=== PATIENT | female | born 1985 | race Caucasian/White ===

== ENCOUNTER → 2016-05-29 | Outpatient (REF) | payer OTHER ==
[2016-05-29 13:44] LABS: MEAN CORPUSCULAR HEMOGLOBIN 31.9 pg (27.0-33.0); MEAN CORPUSCULAR HGB CONC 33.6 g/dl (32.0-36.5); RED CELL DISTRIBUTION WIDTH 11.6 % (11.5-14.5); WHITE BLOOD COUNT 7.4 K/mm3 (4.0-10.0)
[2016-05-29 14:32] LABS: HCG, SERUM QUANTITATIVE 52677 MIU/ML
== END ==
LOC: M LAB REF 13:12
PROVIDERS: ATTEND Advanced Practice Midwife
DX: O36.80X0 Pregnancy with inconclusive fetal viability, not applicable or unspecified (principal); Z3A.00 Weeks of gestation of pregnancy not specified

== ENCOUNTER → 2016-07-26 | Outpatient (CLI) | payer OTHER ==
--- NOTE | 2016-07-27 04:52 | REP ---
Clinical: Dating and viability Comparison: None . Findings: Examination demonstrates a single live intrauterine in variable presentation. motion is identified by technologist. Placenta is noted fundally and grade zero without evidence for placenta previa or abruption. Amniotic fluid volume is normal. Cervix measures 4.1 cm in length and appears closed. No evidence for nuchal cord. Gestational age by current biometrical measurements at 17 weeks 0 days with estimated date of delivery at 01/03/2017. FHR equals 144 beats per minute. Impression: Single live intrauterine measuring at 17 weeks 0 days gestational age. Complete anatomical assessment should be performed at 19-21 weeks. Signed by Niels Rosales MD 07/27/2016 04:43 A
== END ==
LOC: M RAD 12:59
PROVIDERS: ATTEND Obstetrics & Gynecology
DX: O36.80X0 Pregnancy with inconclusive fetal viability, not applicable or unspecified (principal); Z36 Encounter for antenatal screening of mother; Z3A.17 17 weeks gestation of pregnancy

== ENCOUNTER → 2016-09-17 | Outpatient (CLI) | payer OTHER ==
--- NOTE | 2016-09-17 15:41 | REP ---
Obstetric ultrasound for anatomy: There is a single intrauterine gestation in a vertex presentation. There is motion and cardiac activity, the heart rate is 147 beats per minute. There is anterior without previa or abruptio with grade 1 maturity. The amniotic fluid volume subjectively is normal. The cervix is 4.9 cm in length. By today's ultrasound the gestational age is 24 weeks 1 day with an TWIN of 01/06/2017. By the first ultrasound the gestational age is 24 weeks 4 days with an TWIN of 01/03/2017. weight 695 grams (1 pound, 8 ounces). This is the 41st percentile for 24 weeks 4 days. The following structures are identified and are unremarkable: Cranium, choroid plexus, cavum septum pellucidum, cerebellum, posterior fossa, facial profile, lungs, four-chamber heart, cardiac left ventricular outflow tract, diaphragm, as stomach, cord insertion, three-vessel cord, kidneys, bladder, spine and upper lower extremities. We are unable to identify the right ventricular outflow tracts because of lie. On the prior study there was a right choroid plexus cyst. This choroid plexus cyst has resolved. Impression: There are no anomalies, however, the right ventricular outflow tract could not be adequately demonstrated because of position. A followup study dedicated to this structure might be considered. Otherwise, no anomalies are identified. Signed by Wenceslao Short MD 09/17/2016 03:32 P
== END ==
LOC: M SMT 13:23
PROVIDERS: ATTEND Advanced Practice Midwife
DX: Z36 Encounter for antenatal screening of mother (principal); Z3A.24 24 weeks gestation of pregnancy

== ENCOUNTER → 2016-10-03 | Outpatient (REF) | payer OTHER | LOC: M LAB REF 13:01 | PROVIDERS: ATTEND Advanced Practice Midwife | DX: Z34.82 Encounter for supervision of other normal pregnancy, second trimester (principal) ==

== ENCOUNTER → 2016-10-16 | Outpatient (CLI) | payer OTHER | LOC: M SMT 09:39 | PROVIDERS: ATTEND Advanced Practice Midwife | DX: Z34.82 Encounter for supervision of other normal pregnancy, second trimester (principal); Z86.32 Personal history of gestational diabetes ==

== ENCOUNTER → 2016-11-07 | Outpatient (CLI) | payer OTHER ==
[2016-11-07 10:40] LABS: LYMPH % 14.2 % (24.0-44.0); MEAN CORPUSCULAR HEMOGLOBIN 31.3 pg (27.0-33.0); MEAN CORPUSCULAR HGB CONC 33.9 g/dl (32.0-36.5); MEAN CORPUSCULAR VOLUME 92.4 fl (80.0-96.0); NEUTROPHILS % 76.7 % (36.0-66.0); PLATELET COUNT, AUTOMATED 195 10^3/uL (150-450); RED CELL DISTRIBUTION WIDTH 12.5 % (11.5-14.5); WHITE BLOOD COUNT 10.9 10^3/uL (4.0-10.0)
[2016-11-07 10:41] LABS: BASO # 0.1 10^3/uL (0.0-0.2); BASO % 0.5 % (0.0-1.0); EOS # 0.1 10^3/uL (0.0-0.50); EOS % 0.7 % (0.0-3.0); IMMATURE GRANULOCYTE % 0.9 % (0-0); LYMPH # 1.6 10^3/uL (1.5-4.5); MONO # 0.8 10^3/uL (0.0-0.8); NEUTROPHILS # 8.4 10^3/uL (1.8-7.7)
== END ==
LOC: M LAB 09:35
PROVIDERS: ATTEND Advanced Practice Midwife
DX: Z34.83 Encounter for supervision of other normal pregnancy, third trimester (principal)

== ENCOUNTER → 2016-11-16 | Outpatient (CLI) | payer OTHER ==
--- NOTE | 2016-11-16 13:23 | REP ---
OB ULTRASOUND: Real-time sonographic evaluation of gravid uterus performed. There is a single living intrauterine gestation. The estimated gestational age is 33 weeks 1 day, EDC 01/03/2017. Today's measurements indicate appropriate growth. BPD 80 mm = 32 weeks 2 days, 38th percentile HC 286 mm = 31 weeks 3 days, 26th percentile AC 282 mm = 32 weeks 1 day, 36th percentile Femur length 62 mm = 32 weeks 2 days, 37th percentile HC/AC ratio 1.02, within normal range. Estimated weight 1910 grams, 26th percentile. Cervix is closed and measures 3.7 cm in length. heart rate 133 beats per minute. Amniotic fluid within normal limits, HUE 10.8 within normal range of 8.3 to 24.5. Visualized anatomy today includes the posterior fossa, stomach, three-vessel cord, bladder, and spine, which are grossly unremarkable. Kidneys are grossly unremarkable. position vertex. Placenta is anterior and grade 1 with no previa or abruption. Signed by Wenceslao Horan MD 11/16/2016 02:46 P
== END ==
LOC: M SMT 11:20
PROVIDERS: ATTEND Advanced Practice Midwife
DX: O09.299 Supervision of pregnancy with other poor reproductive or obstetric history, unspecified trimester (principal); Z3A.33 33 weeks gestation of pregnancy

== ENCOUNTER 2016-12-29 22:42 | Inpatient (IN) | payer OTHER ==
[~2016-12-29] VITALS: Ht 157.5 cm; Wt 64.8 kg
[~2016-12-29 22:42] MED LIST: PRENCAP6 PO
[2016-12-29 22:58] VITALS: BP 129/74
[2016-12-29] MEDS ORDERED: LR 1,000 ML IV SCH (23:42)
[2016-12-29] MEDS ORDERED: BICITRA 30ML SOLN UDC PO ONE (23:45)
[2016-12-29 23:47] VITALS: BP 129/66
[2016-12-29 23:52] LABS: MEAN CORPUSCULAR HEMOGLOBIN 31.4 pg (27.0-33.0); MEAN CORPUSCULAR HGB CONC 34.5 g/dl (32.0-36.5); PLATELET COUNT, AUTOMATED 214 10^3/uL (150-450); RED CELL DISTRIBUTION WIDTH 12.7 % (11.5-14.5); WHITE BLOOD COUNT 12.6 10^3/uL (4.0-10.0)
[2016-12-30] VITALS (18 sets, daily range): BP systolic 107–137; BP diastolic 56–102
[2016-12-30] MEDS ORDERED: MORPHINE PRES-FREE INJ 10 MG/10 ML VIAL (J2274) As Ordered ONE (00:09)
[2016-12-30] MEDS ORDERED: OXYTOCIN INJ 10 UNITS/ML VIAL (J2590) As Ordered ONE (00:10)
[2016-12-30] MEDS ORDERED: fentaNYL 100 MCG/2 ML INJECTION (J3010) As Ordered ONE ×2 (00:43→01:26)
[2016-12-30] MEDS ORDERED: MIDAZOLAM INJ 2 MG/2 ML VIAL (J2250) As Ordered ONE (01:00)
[2016-12-30 01:12] LABS: CORD GAS HCO3 V 25.8 MEQ/L; CORD GAS O2 SAT V 42.1 %; CORD GAS PH V 7.237 UNITS; CORD GAS PO2 V 19.7 mmHg; CORD GAS SBC V 20.6 MEQ/L; CORD GAS TCO2 V 27.7 MEQ/L
[2016-12-30 01:16] LABS: CORD GAS ABE A -5.1; CORD GAS HCO3 A 23.4 MEQ/L; CORD GAS O2 SAT A 15.6 %; CORD GAS PCO2 A 57.9 mmHg; CORD GAS PH A 7.224 UNITS; CORD GAS PO2 A < 10.0 mmHg; CORD GAS SBC A 18.5 MEQ/L; CORD GAS TCO2 A 25.2 MEQ/L
[2016-12-30] MEDS ORDERED: PERCOCET 5MG/325MG TAB As Ordered ONE (02:06)
[2016-12-30] MEDS: LR 1,000 ML IV SCH ×3 (02:10→18:10)
[2016-12-30] MEDS: PERCOCET 5MG/325MG TAB PO PRN ×3 (02:10→17:38)
[2016-12-30] MEDS ORDERED: OXYTOCIN DRIP 30 UNITS in APPROPRIATE DILUENT 1 EA IV ONE (02:15)
[2016-12-30] MEDS ORDERED: KETOROLAC 30 MG/ML VIAL (J1885) IV SCH (02:15)
[2016-12-30] MEDS ORDERED: ONDANSETRON 4MG/2ML VIAL (J2405) IV PRN ×2 (02:15→03:15)
[2016-12-30] MEDS ORDERED: DOCUSATE SODIUM 100 MG CAP PO PRN (02:15)
[2016-12-30] MEDS ORDERED: MEASLES,MUMPS,RUBELLA VACCINE INJ (MMR-II) (90707) SC SCH (02:15)
[2016-12-30] MEDS ORDERED: MOM 30ML SUSPENSION UDC PO PRN (02:15)
[2016-12-30] MEDS ORDERED: RHOGAM 300 MCG (1500 IU) INJ (J2790) IM SCH (02:15)
[2016-12-30] MEDS ORDERED: AMPICILLIN SOD/SULBACTAM SOD 3 GM in D5W MINI-BAG PLUS 100 ML IV SCH (03:00)
[2016-12-30] MEDS ORDERED: METOCLOPRAMIDE INJ 10MG/2ML VIAL (J2765) IV PRN (03:15)
[2016-12-30] MEDS ORDERED: fentaNYL 100 MCG/2 ML INJECTION (J3010) IV PRN (03:15)
[2016-12-30] MEDS ORDERED: LR 1,000 ML IV SCH (03:15)
[2016-12-30] MEDS ORDERED: PERCOCET 5MG/325MG TAB PO PRN (03:15)
[2016-12-30] MEDS: KETOROLAC 30 MG/ML VIAL (J1885) IV SCH ×3 (07:43→19:32)
--- NOTE | 2016-12-30 08:12 | HPE ---
DATE OF ADMISSION: 12/29/2016 REASON FOR ADMISSION: Active labor. HISTORY OF PRESENT ILLNESS: This patient is a 31-year-old 7, para 2, who presents at 38 weeks 5 days estimated gestational age by a first trimester ultrasound with complaints of contractions. She reports contractions have increased in frequency and intensity throughout the day, and upon arrival, she had a spontaneous rupture of membranes. She reports active movement. Denies any vaginal bleeding. Her course is remarkable for a transfer of care at 22 weeks and also, unremarkable for smoking during her . PAST MEDICAL HISTORY: History of depression and anxiety. PAST SURGICAL HISTORY: 1. She has had a section. 2. Dilation and curettage. PAST OBSTETRICAL HISTORY: She is a 7. She is para 2. She has had a 36 week vaginal delivery, which was complicated by intrauterine growth restriction and diabetes. She was proven to 4 pounds 6 ounces. She had a stillbirth at approximately 7 months, followed by three miscarriages. She has had a section for breech presentation. No current medications. SOCIAL HISTORY: She reports tobacco use during her . On physical exam, her vital signs are stable. She has category 2 rate tracing with regular pattern of contractions. General appearance: No acute distress. Her lungs are clear to auscultation bilaterally. Cardiovascular: Heart regular rate and rhythm. Her abdomen is gravid and nontender. Cervical exam: She is 4 cm dilated, 90% effaced, zero station, grossly ruptured. LABS: Her blood type is A positive. Antibody screen is negative. Rubella is immune. RPR is nonreactive. Hepatitis surface antigen is negative. HIV is negative. Hepatitis C is nonreactive. Chlamydia and gonorrhea screens are negative. She had elevated 1-hour Glucola with a normal 3-hour glucose tolerance test and she is GBS negative. ASSESSMENT: 1. This patient is a 31-year-old, 7, para 2, who presents at 38 weeks 5 days estimated gestational age in active labor. 2. History of prior section. Plan is to: 1. Admit to labor and delivery, complete blood count (CBC), rapid plasma reagin (RPR), type and screen, urine toxicology screen. 2. Patient has been thoroughly counseled in regards to mode of delivery. She has been counseled for vaginal delivery versus a trial of labor after . She has expressed her desire for elective repeat lower transverse section with bilateral tubal ligation throughout this . She has confirmed today upon presentation. Plan is to proceed at her request for elective lower transverse section with bilateral tubal ligation. VIVIAN
[2016-12-30] MEDS ORDERED: IBUP1TAB7 PO (08:54)
[2016-12-30] MEDS ORDERED: PERCOCET PO (08:55)
[2016-12-30] MEDS: PRENATAL VITAMINS CHEWABLE TABLET PO SCH (09:00)
[2016-12-30] MEDS: AMPICILLIN SOD/SULBACTAM SOD 3 GM in D5W MINI-BAG PLUS 100 ML IV SCH ×2 (10:54→17:32)
--- NOTE | 2016-12-30 10:58 | RO ---
DATE OF PROCEDURE: 12/30/2016 PREOPERATIVE DIAGNOSES: 1. Active labor with history of prior section desiring elective repeat lower transverse section. 2. Satisfied parity with undesired fertility. POSTOPERATIVE DIAGNOSES: 1. Active labor with history of prior section desiring elective repeat lower transverse section. 2. Satisfied parity with undesired fertility. PROCEDURE PERFORMED: Repeat lower transverse section with bilateral tubal ligation using Marshall's method. SURGEON: Mendy Donahue MD TELECOMMUNICATIONS ADMINISTRATOR: Jigar Thomas MD ANESTHESIA: Spinal anesthesia, which was converted to general endotracheal anesthesia. ESTIMATED BLOOD LOSS: Was 500 mL. INTRAVENOUS FLUIDS: 1300 mL. URINE OUTPUT: Was 100 mL. SPECIMENS: Cord blood, cord gases and bilateral segments of fallopian tube. Cord gases 7.22, 7.23 with base excess of -5.1 and -3.0. PREOPERATIVE ANTIBIOTICS: 2 grams of Ancef. OPERATIVE FINDINGS: Liveborn male , score 8 and 9. Weight was 2650 grams or 5 pounds 13 ounces. DESCRIPTION OF OPERATION: After informed consent was obtained and written consent was reviewed, the patient was brought to the operating room where spinal anesthesia was placed. She was placed in lithotomy position, was prepped and draped in normal sterile fashion. Pappas catheter had been placed, set to gravity. A time-out in the operating room was then performed, identifying the patient, procedure to be performed, as well as drug allergies. Patient had remained uncomfortable after spinal anesthesia. A decision was made to proceed under general anesthesia. General anesthesia was obtained. Next, a Pfannenstiel skin incision was then made and carried down to the underlying rectus fascia. The fascia was scored and this incision was extended bilaterally. The fascia was then dissected off the underlying rectus muscles both superiorly and inferiorly. The rectus muscles were then in midline. The peritoneum was then entered sharply. The vesicouterine peritoneum was identified. It was tented and excised to create a bladder flap. A bladder blade was then placed to retract back the bladder. A curvilinear incision was then made in the lower uterine segment. The head was then delivered to the level of the incision. There was use of a vaginal field technical assistant to help deliver head through the uterine incision. This was followed by delivery of corpus and body. The cord was clamped times two and infant was taken over to the warmer with a good cry. Cord blood and gases were obtained. Placenta was then drained and delivered grossly intact. The uterus was then exteriorized and cleared of all clots and debris. The uterine incision was then closed in two layers using #0 Vicryl, first in a running locking fashion, followed by a second layer in a running nonlocking fashion for imbrication. Attention was then turned to the patient's fallopian tube for bilateral Marshall's ligation was then performed. The right fallopian tube was placed on traction. A window was created in the mesosalpinx. This area was doubly ligated using #3-0 chromic. A segment of fallopian tube was then excised and collected for pathology. In a similar fashion, the left fallopian tube was placed on traction, a window was created in the mesosalpinx. This area was doubly ligated with #3-0 chromic and this area was excised and collected and sent to pathology. The uterus was then returned to the patient's abdomen. Surgical sites were then inspected and noted to be hemostatic. Next, the anterior peritoneum was then reapproximated using #3-0 Vicryl. The rectus muscles were reapproximated using #3-0 Vicryl. The fascia was then closed using #0 Vicryl in a running nonlocking fashion. The subcutaneous tissue was then irrigated and suctioned. Subcutaneous tissue was reapproximated using #3-0 Vicryl. Several subdermal stitches were placed with #3-0 Vicryl and the skin was closed with #4-0 Monocryl in subcuticular fashion. The incision was then cleaned and dried. Mastisol was applied above, below the incision. Steri-Strips were applied over the incision. The incision was then dressed. The patient was then awakened from general anesthesia, taken to recovery in stable condition. Counts were correct.
[2016-12-31] MEDS: PERCOCET 5MG/325MG TAB PO PRN ×4 (00:17→20:25)
[2016-12-31] MEDS: KETOROLAC 30 MG/ML VIAL (J1885) IV SCH (01:21)
[2016-12-31 02:02] VITALS: BP 114/63
[2016-12-31 06:42] VITALS: BP 105/57
[2016-12-31 07:05] LABS: MEAN CORPUSCULAR HEMOGLOBIN 31.5 pg (27.0-33.0); MEAN CORPUSCULAR HGB CONC 34.1 g/dl (32.0-36.5); MEAN CORPUSCULAR VOLUME 92.4 fl (80.0-96.0); PLATELET COUNT, AUTOMATED 150 10^3/uL (150-450); RED CELL DISTRIBUTION WIDTH 12.8 % (11.5-14.5); WHITE BLOOD COUNT 13.6 10^3/uL (4.0-10.0)
[2016-12-31] MEDS ORDERED: SIMETHICONE 80 MG CHEW TAB PO PRN (08:00)
[2016-12-31] MEDS: PRENATAL VITAMINS CHEWABLE TABLET PO SCH (08:01)
[2016-12-31] MEDS: IBUPROFEN 800 MG TAB PO SCH ×2 (08:02→17:30)
[2016-12-31 18:04] VITALS: BP 127/66
[2017-01-01] MEDS: PERCOCET 5MG/325MG TAB PO PRN ×3 (01:11→15:31)
[2017-01-01] MEDS: IBUPROFEN 800 MG TAB PO SCH ×2 (01:30→08:51)
[2017-01-01 06:00] VITALS: BP 130/59
[2017-01-01] MEDS ORDERED: SIME180C PO (07:40)
[2017-01-01] MEDS ORDERED: ADVI200C5 PO (07:40)
[2017-01-01] MEDS ORDERED: COLA100C5 PO (07:40)
[2017-01-01] MEDS: PRENATAL VITAMINS CHEWABLE TABLET PO SCH (08:51)
[2017-01-04 14:10] LABS: GC Carboxy THC 546 ng/mL (Cutoff=10)
== END 2017-01-01 15:30 | disposition home or self-care (01) | DRG 540 ==
LOC: M LDO 22:42 → M LDI 23:27 → M OBS 12-30 03:00
PROVIDERS: ADMIT Obstetrics & Gynecology; ATTEND Obstetrics & Gynecology
PROC: 0UB70ZZ Excision of Bilateral Fallopian Tubes, Open Approach (ICD-10-PCS; 2016-12-30)
PROC: 10D00Z1 Extraction of Products of Conception, Low, Open Approach (ICD-10-PCS; principal; 2016-12-30 01:43)
DX: O34.211 Maternal care for low transverse scar from previous cesarean delivery (principal); O75.82 Onset (spontaneous) of labor after 37 completed weeks of gestation but before 39 completed weeks gestation, with delivery by (planned) cesarean section; Z37.0 Single live birth; Z3A.38 38 weeks gestation of pregnancy; Z30.2 Encounter for sterilization

== ENCOUNTER 2019-08-29 11:03 | Inpatient (IN) | payer MEDICAID, OTHER, SELFPAY ==
[~2019-08-29] VITALS: Ht 160 cm; Wt 56.4 kg
[~2019-08-29 11:03] MED LIST changes: +ADVI200C5 PO; +COLA100C5 PO; +IBUP1TAB7 PO; +PERCOCET PO; +SIME180C PO
[2019-08-29] MEDS ORDERED: MIDOTAB PO (11:13)
[2019-08-29 11:37] LABS: BASO # 0.1 10^3/uL (0.0-0.2); BASO % 0.3 % (0.0-1.0); EOS % 0.2 % (0.0-3.0); HEMOGLOBIN 15.3 g/dl (12.0-15.5); LYMPH # 1.3 10^3/uL (1.5-5.0); LYMPH % 6.9 % (24.0-44.0); MEAN CORPUSCULAR HEMOGLOBIN 32.2 pg (27.0-33.0); MEAN CORPUSCULAR VOLUME 94.7 fl (80.0-96.0); MONO # 1.4 10^3/uL (0.0-0.8); MONO % 7.6 % (0.0-5.0); NEUTROPHILS # 15.5 10^3/uL (1.5-8.5); NEUTROPHILS % 84.4 % (36.0-66.0); PLATELET COUNT, AUTOMATED 236 10^3/uL (150-450); RED BLOOD COUNT 4.75 10^6/uL (4.00-5.40); WHITE BLOOD COUNT 18.3 10^3/uL (4.0-10.0)
[2019-08-29] MEDS ORDERED: NS 1,000 ML IV ONE (11:45)
[2019-08-29] MEDS ORDERED: ONDANSETRON 4MG/2ML VIAL IV ONE (11:45)
[2019-08-29] MEDS ORDERED: KETOROLAC 30 MG/ML 1ML VIAL IV ONE (11:45)
[2019-08-29 12:02] LABS: ALBUMIN 3.9 GM/DL (3.2-5.2); BILIRUBIN,DIRECT 0.4 MG/DL (0.0-0.2); BILIRUBIN,TOTAL 1.2 MG/DL (0.2-1.0); TOTAL PROTEIN 7.7 GM/DL (6.4-8.2)
[2019-08-29] MEDS: GASTROGRAFIN SOLUTION 30ML PO SCH ×2 (12:07→12:50)
[2019-08-29] MEDS ORDERED: ISOVUE-370 76% 100ML VIAL As Ordered ONE (13:21)
[2019-08-29] MEDS ORDERED: CIPROFLOXACIN 400 MG in IV 1 EA IV ONE (14:15)
[2019-08-29] MEDS ORDERED: metroNIDAZOLE 500 MG in IV 1 EA IV ONE (14:15)
[2019-08-29] MEDS ORDERED: PERCOCET 5MG/325MG TAB PO PRN (17:00)
[2019-08-29] MEDS ORDERED: ACETAMINOPHEN TAB 650MG DOSE (2X325MG) PO PRN (17:00)
[2019-08-29] MEDS ORDERED: KETOROLAC 30 MG/ML 1ML VIAL IV PRN (17:00)
--- NOTE | 2019-08-29 17:40 | HPEPDOC ---
General Surgery H&P Date of Admission Aug 29, 2019 Attending Physician: NELL JARA MD History and Physical CHIEF COMPLAINT: abdominal pain HISTORY OF PRESENT ILLNESS: Patient is an overall healthy 34-year-old female who presented herself to the emergency department today with a two-day history of abdominal pain. Patient reports sudden onset of crampy lower quadrant bilateral abdominal pain that started yesterday morning associated with nausea and multiple episodes of vomiting overnight and 1-2 loose nonbloody stools. She denies associated fevers or chills. She reports prior symptoms that are much less in severity than what she was experiencing today which would go away on its own. She denies any prior episodes of previously recognized diverticulitis. She reports weight gain and no weight loss. She has not had any prior colonoscopies for any reason. She denies any family history for Crohn's disease, inflammatory bowel disease or colorectal malignancy. She denies any recent travel or sick contacts. In the ER she was evaluated and was found to have inflammation around the sigmoid colon with a pericolic free air consistent with probably colitis/diverticulitis. ALLERGIES: Please see below. HOME MEDICATIONS: Please see below. PAST MEDICAL HISTORY: 1. Patient denies any chronic medical problems PAST SURGICAL HISTORY: 1. section. 2. D&C PERSONAL/SOCIAL HISTORY: Patient reports smoking half pack a day, alcohol intake usually 1 time a week, denies recreational drug use. REVIEW OF SYSTEMS: GENERAL: Symptoms are due to the duration. Patient reports mild weight gain. HEENT: Denies problems with vision or hearing or hoarseness of her voice. NECK: Denies any neck pain. CARDIOVASCULAR: Denies chest pain and palpitations. MUSCULOSKELETAL: Denies arthralgias, back pain and thrombophlebitis. SKIN: Denies rash. NEUROLOGIC: Denies headache, stroke and transient ischemic attack. PSYCHIATRIC: Denies anxiety and depression. ENDOCRINE: Denies thyroid disease. HEMATOLOGY/ONCOLOGY: Denies any bleeding or clotting disorder. HEART: Denies any chest pains, palpitations, paroxysmal dyspnea, orthopnea. PULMONARY: Denies chronic cough, dyspnea and wheezing. GASTROINTESTINAL: See HPI. GENITOURINARY: Reports mild dysuria. ENDOCRINE: Denies polydipsia, polyphagia, polyuria, heat or cold intolerance. INFECTIOUS: Denies any recent upper respiratory tract infection, UTI, need for use of antibiotics. NUTRITION: Reports anorexia. PHYSICAL EXAMINATION: VITAL SIGNS: Please see below. GENERAL APPEARANCE: Patient seen at the bedside, mildly uncomfortable with movement. Awake, alert, oriented. HEENT: Normocephalic, atraumatic. [place] palpebral conjunctivae. Anicteric sclerae. Lips moist. CHEST: No chest wall abnormalities. Normal respiratory motion/effort. NECK: Supple. No thyromegaly. No lymphadenopathies. LUNGS: Lung sounds are clear to auscultation bilaterally. No wheezing appr eciated. HEART: No chest wall abnormalities. Heart rate and rhythm are regular with no murmurs. ABDOMEN: Abdomen is mildly obese, nondistended. She has tenderness centered at the suprapubic area with slight radiation over the left lower quadrant area nontender in the right lower quadrant and upper abdomen. Mild guarding over the suprapubic area.. SKIN: Warm and dry. EXTREMITIES: No significant extremity edema. NEUROLOGICAL: Awake, alert and oriented. ANCILLARIES: . LABORATORY DATA: Please see below. MICROBIOLOGY: Please see below. IMAGING: CT abdomen and pelvis Colitis/diverticulitis, couple of bubbles of air decide the sigmoid colon, no free air, no abscess IMPRESSION AND PLAN: Acute diverticulitis (2 type II) some bubbles of air in the mesentery decide the sigmoid colon with marked thickening of the mucosa on the sigmoid colon no free air, no abscesses Patient has symptoms consistent with most likely acute diverticulitis which is her first documented attack though she reports prior episodes of mild symptoms. She'll be admitted in the hospital for IV antibiotics and hopefully just a short period of bowel rest to control the pain as well as the leukocytosis. I told her that there is a small possibility that this will develop an abscess which may require subsequent drainage. One she clinically improves he can gradually introduced diet once more. Would recommend for her to get into a high-fiber diet. She will also require interval colonoscopy Vital Signs Vital Signs Date Time Temp Pulse Resp B/P (MAP) Pulse Ox O2 Delivery O2 Flow Rate FiO2 08/29/19 16:23 98.1 80 22 98/55 (69) 98 Room Air Laboratory Data Labs 24H Laboratory Tests 2 08/29/19 11:26: Urine Color ASAF, Urine Appearance CLOUDYH, Urine pH 5.0, Urine Specific [place] 1.027, Urine Protein 1+H, Urine Glucose (UA) NEGATIVE, Urine Ketones 2+H, Urine Blood NEGATIVE, Urine Nitrite NEGATIVE, Urine Bilirubin NEGATIVE, Urine Urobilinogen 2.0H, Urine Leukocyte Esterase 1+H, Urine WBC (Auto) 33H, [place] RBC (Auto) 2, Urine Hyaline Casts (Auto) 0, Urine Bacteria (Auto) 1+H, Urine Squamous Epithelial Cells 44, Urine Mucus (Auto) LARGE, Urine Sperm (Auto) 08/29/19 11:27: Immature Granulocyte % (Auto) 0.6, Neutrophils (%) (Auto) 84.4H, Lymphocytes (%) (Auto) 6.9L, Monocytes (%) (Auto) 7.6H, Eosinophils (%) (Auto) 0.2, Basophils (%) (Auto) 0.3, Neutrophils # (Auto) 15.5H, Lymphocytes # (Auto) 1.3L, Monocytes # (Auto) 1.4H, Eosinophils # (Auto) 0.0, Basophils # (Auto) 0.1, Nucleated Red Blood Cells % (auto) 0.0, Total Bilirubin 1.2H, Direct Bilirubin 0.4H, Aspartate Amino Transf (AST/SGOT) 40H, Alanine Aminotransferase (ALT/SGPT) 27, Alkaline Phosphatase 79, Total Protein 7.7, Albumin 3.9, Albumin/Globulin Ratio 1.0L, Lipase 52L 08/29/19 11:28: POC Beta HCG, Quantitative < 5.0 08/29/19 11:41: POC Glucose (Misc Panel) 116H, POC Sodium (Misc Panel) 135L, POC Potassium (Misc Panel) 3.5, POC Chloride (Misc Panel) 101, POC Total CO2 (Misc Panel) 22.0L, POC Blood Urea Nitrogen (Misc Panel 10, POC Ionized Calcium (Misc Panel) 4.5, POC Creatinine (Misc Panel) 0.6, POC Hematocrit (Misc Panel) 48.0 CBC/BMP Laboratory Tests 08/29/19 11:27 Microbiology Microbiology 08/29/19 Urine Culture, Received Pending Home Medications Scheduled PRN Acetaminophen/Pyrilamine/Caff (Midol [place]) 1 Each Tablet, 2 EACH PO BID PRN for PAIN, (Reported) Allergies Coded Allergies: shellfish derived (Verified Allergy, Unknown, throat swelling, 08/29/19) sulfisoxazole (Verified Allergy, Unknown, unknown, 08/29/19) A-FIB/CHADSVASC A-FIB History Current/History of A-Fib/PAF?: No Current PO Anticoag Therapy: No NELL JARA MD Aug 29, 2019 17:40
[2019-08-29] MEDS: LR 1,000 ML IV SCH (17:45)
[2019-08-29] MEDS: MORPHINE 2 MG/ML 1ML VIAL (J2270) IV PRN (19:21)
[2019-08-29 19:45] VITALS: BP 136/78
[2019-08-29] MEDS: metroNIDAZOLE 500 MG in IV 1 EA IV SCH (20:50)
[2019-08-29 22:00] VITALS: BP 130/74
[2019-08-29] MEDS: PERCOCET 5MG/325MG TAB PO PRN (22:12)
[2019-08-30] MEDS: metroNIDAZOLE 500 MG in IV 1 EA IV SCH ×4 (03:00→20:55)
[2019-08-30] MEDS: CIPROFLOXACIN 400 MG in IV 1 EA IV SCH ×2 (04:03→15:50)
[2019-08-30] MEDS: LR 1,000 ML IV SCH ×2 (04:03→14:15)
[2019-08-30 06:00] VITALS: BP 124/76
[2019-08-30 06:34] LABS: BASO % 0.3 % (0.0-1.0); EOS % 0.2 % (0.0-3.0); HEMATOCRIT 36.9 % (36.0-47.0); HEMOGLOBIN 12.2 g/dl (12.0-15.5); LYMPH # 0.6 10^3/uL (1.5-5.0); LYMPH % 5.1 % (24.0-44.0); MEAN CORPUSCULAR HEMOGLOBIN 32.4 pg (27.0-33.0); MEAN CORPUSCULAR HGB CONC 33.1 g/dl (32.0-36.5); MEAN CORPUSCULAR VOLUME 98.1 fl (80.0-96.0); MONO % 8.4 % (0.0-5.0); NEUTROPHILS # 10.4 10^3/uL (1.5-8.5); NEUTROPHILS % 85.2 % (36.0-66.0); PLATELET COUNT, AUTOMATED 177 10^3/uL (150-450); RED BLOOD COUNT 3.76 10^6/uL (4.00-5.40); WHITE BLOOD COUNT 12.2 10^3/uL (4.0-10.0)
[2019-08-30] MEDS: PERCOCET 5MG/325MG TAB PO PRN ×2 (06:36→16:58)
[2019-08-30 07:01] LABS: BLOOD UREA NITROGEN 8 MG/DL (7-18); CARBON DIOXIDE LEVEL 24 MEQ/L (21-32); CHLORIDE LEVEL 105 MEQ/L (98-107); GLOMERULAR FILTRATION RATE > 60.0 (>60); GLUCOSE, FASTING 103 MG/DL (70-100); POTASSIUM SERUM 3.6 MEQ/L (3.5-5.1); SODIUM LEVEL 135 MEQ/L (136-145)
--- NOTE | 2019-08-30 07:30 | REP ---
REASON: Abdominal pain. COMPARISON: 05/11/2010, which was normal. CONTRAST: 100 mL [id number]. The lung bases are clear. The liver, gallbladder, spleen, pancreas, adrenal glands, and kidneys are within normal limits. The abdominal aorta and para-aortic regions are within normal limits. The intra-abdominal bowel loops and their mesenteries are within normal limits. There is abnormal sigmoid colon wall thickening. There is mild perisigmoidal fatty infiltration and a small amount of free fluid in the pelvis. There is a small amount of free air in the perisigmoidal mesentery. The osseous structures are within normal limits. IMPRESSION: Evidence of sigmoid colitis/diverticulitis with microperforation and a small amount of free fluid. These findings were discussed with Flor Cassidy at the time this examination was interpreted. Electronically Signed by Moises Norris DO 08/30/2019 08:00 A
[2019-08-30] MEDS: ENOXAPARIN 40MG/0.4ML SYRINGE (J1650 PER 10MG) SC SCH (07:48)
[2019-08-30] MEDS: MORPHINE 2 MG/ML 1ML VIAL (J2270) IV PRN ×2 (07:49→12:03)
[2019-08-30 14:00] VITALS: BP 96/57
[2019-08-30 22:00] VITALS: BP 128/70
[2019-08-31] MEDS: metroNIDAZOLE 500 MG in IV 1 EA IV SCH ×4 (02:55→21:31)
[2019-08-31] MEDS: LR 1,000 ML IV SCH ×2 (02:55→13:43)
[2019-08-31] MEDS: CIPROFLOXACIN 400 MG in IV 1 EA IV SCH ×2 (04:04→16:47)
[2019-08-31 06:00] VITALS: BP 104/79
[2019-08-31 06:11] LABS: BASO % 0.4 % (0.0-1.0); EOS # 0.1 10^3/uL (0.0-0.5); EOS % 0.8 % (0.0-3.0); HEMATOCRIT 32.4 % (36.0-47.0); HEMOGLOBIN 10.7 g/dl (12.0-15.5); LYMPH # 0.9 10^3/uL (1.5-5.0); LYMPH % 9.5 % (24.0-44.0); MEAN CORPUSCULAR HEMOGLOBIN 32.1 pg (27.0-33.0); MEAN CORPUSCULAR VOLUME 97.3 fl (80.0-96.0); MONO # 0.9 10^3/uL (0.0-0.8); MONO % 9.9 % (0.0-5.0); NEUTROPHILS # 7.1 10^3/uL (1.5-8.5); NEUTROPHILS % 78.5 % (36.0-66.0); PLATELET COUNT, AUTOMATED 178 10^3/uL (150-450); RED BLOOD COUNT 3.33 10^6/uL (4.00-5.40); WHITE BLOOD COUNT 9.1 10^3/uL (4.0-10.0)
[2019-08-31 06:30] LABS: BLOOD UREA NITROGEN 5 MG/DL (7-18); CALCIUM LEVEL 7.9 MG/DL (8.5-10.1); CARBON DIOXIDE LEVEL 21 MEQ/L (21-32); CHLORIDE LEVEL 108 MEQ/L (98-107); GLOMERULAR FILTRATION RATE > 60.0 (>60); GLUCOSE, FASTING 93 MG/DL (70-100); POTASSIUM SERUM 3.4 MEQ/L (3.5-5.1); SODIUM LEVEL 138 MEQ/L (136-145)
[2019-08-31] MEDS: ENOXAPARIN 40MG/0.4ML SYRINGE (J1650 PER 10MG) SC SCH (09:00)
--- NOTE | 2019-08-31 12:19 | IPNPDOC ---
Text Note Date of Service The patient was seen on 08/30/19. VS,Fishbone, I+O VS, Fishbone, I+O Laboratory Tests 08/31/19 05:42 Vital Signs Date Time Temp Pulse Resp B/P (MAP) Pulse Ox O2 Delivery O2 Flow Rate FiO2 08/31/19 06:00 98.0 85 18 104/79 (87) 97 Room Air I&O- Last 24 Hours up to 6 AM0 08/31/19 06:00 Intake Total 1500 ml Output Total 1000 ml Balance 500 ml NELL JARA MD Aug 31, 2019 12:19
--- NOTE | 2019-08-31 12:21 | IPNPDOC ---
Text Note Date of Service The patient was seen on 08/31/19. NOTE Patient reports feeling much better today, just hungry. Denies nausea, vomiting, bloating. having soft stools VS stable On exam abdomen round, soft, very minimal tenderness on direct palpation over suprapubic area without rebound or guarding Impression: Acute diverticulitis will start on liquids today and hopefully advanced to soft foods inflammation and thickening of the sigmoid colon wall quite significant so I expect a slow gradual improvement. Does not look typical for acute diverticulitis alone. I stressed to her the need for interval colonoscopy once all better at 4-6 weeks. VS,Fishbone, I+O VS, Fishbone, I+O Laboratory Tests 08/31/19 05:42 Vital Signs Date Time Temp Pulse Resp B/P (MAP) Pulse Ox O2 Delivery O2 Flow Rate FiO2 08/31/19 06:00 98.0 85 18 104/79 (87) 97 Room Air I&O- Last 24 Hours up to 6 AM 08/31/19 06:00 Intake Total 1500 ml Output Total 1000 ml Balance 500 ml NELL JARA MD Aug 31, 2019 12:21
[2019-08-31 14:00] VITALS: BP 111/73
[2019-08-31] MEDS ORDERED: SIMETHICONE 80 MG CHEW TAB PO PRN (21:30)
[2019-08-31] MEDS: PERCOCET 5MG/325MG TAB PO PRN (21:31)
[2019-08-31 22:00] VITALS: BP 116/75
[2019-09-01] MEDS: metroNIDAZOLE 500 MG in IV 1 EA IV SCH ×2 (02:48→09:55)
[2019-09-01] MEDS: LR 1,000 ML IV SCH ×2 (02:48→12:48)
[2019-09-01] MEDS: CIPROFLOXACIN 400 MG in IV 1 EA IV SCH (04:16)
[2019-09-01 06:00] VITALS: BP 129/68
[2019-09-01 06:14] LABS: BASO % 0.6 % (0.0-1.0); EOS # 0.1 10^3/uL (0.0-0.5); EOS % 1.2 % (0.0-3.0); HEMATOCRIT 30.8 % (36.0-47.0); HEMOGLOBIN 10.5 g/dl (12.0-15.5); LYMPH % 14.7 % (24.0-44.0); MEAN CORPUSCULAR HGB CONC 34.1 g/dl (32.0-36.5); MEAN CORPUSCULAR VOLUME 96.9 fl (80.0-96.0); MONO # 0.8 10^3/uL (0.0-0.8); MONO % 12.6 % (0.0-5.0); NEUTROPHILS # 4.7 10^3/uL (1.5-8.5); NEUTROPHILS % 70.3 % (36.0-66.0); PLATELET COUNT, AUTOMATED 199 10^3/uL (150-450); RED BLOOD COUNT 3.18 10^6/uL (4.00-5.40); WHITE BLOOD COUNT 6.7 10^3/uL (4.0-10.0)
[2019-09-01 06:27] LABS: BLOOD UREA NITROGEN 5 MG/DL (7-18); C REACTIVE PROTEIN QUANTITATIV 8.77 MG/DL (0.00-0.30); CALCIUM LEVEL 7.9 MG/DL (8.5-10.1); CARBON DIOXIDE LEVEL 23 MEQ/L (21-32); CHLORIDE LEVEL 109 MEQ/L (98-107); CREATININE FOR GFR 0.47 MG/DL (0.55-1.30); GLOMERULAR FILTRATION RATE > 60.0 (>60); GLUCOSE, FASTING 128 MG/DL (70-100); POTASSIUM SERUM 3.3 MEQ/L (3.5-5.1); SODIUM LEVEL 140 MEQ/L (136-145)
[2019-09-01] MEDS: ENOXAPARIN 40MG/0.4ML SYRINGE (J1650 PER 10MG) SC SCH (09:00)
[2019-09-01] MEDS ORDERED: CIPR500T3 PO (13:37)
[2019-09-01] MEDS ORDERED: FLAG500T PO (13:37)
[2019-09-01] MEDS ORDERED: PEPC1TAB5 PO (13:37)
--- NOTE | 2019-09-01 13:40 | IPNPDOC ---
Text Note Date of Service The patient was seen on 09/01/19. NOTE Patient reports she is feeling better. She had some gasping last night which improved with Mylanta also had one episode of small vomiting which she felt was from her stomach acid type discomfort. Feels better afterwards. She is tolerating full liquids. She's been afebrile Vital signs 97.5 65 18 129/68 98% at room air On examination Patient looks much more comfortable now than on her presentation. She is moving around on the bed without any increased discomfort. Abdomen is soft, nondistended and no leftover tenderness over the suprapubic and left lower quadrant area. Also nontender at the epigastric area Laboratories WBC 6.7 CRP 8.7 (down from 15.3) Impression Acute diverticulitis ([place] II) As have discussed with her yesterday we will advance her to soft diet and if she tolerates this she will be discharged home on soft diet. She is instructed to keep on soft and low residue diet until all discomfort goes away didn't she will be advanced to high-fiber diet. Follow-up with me in 2 weeks' time and we will need an interval colonoscopy to look at the sigmoid colon. VS,Fishbone, I+O VS, Fishbone, I+O Laboratory Tests 09/01/19 05:39 Vital Signs Date Time Temp Pulse Resp B/P (MAP) Pulse Ox O2 Delivery O2 Flow Rate FiO2 09/01/19 06:00 97.5 65 18 129/68 (88) 98 08/31/19 14:00 Room Air I&O- Last 24 Hours up to 6 AM 09/01/19 06:00 Intake Total 3780 ml Output Total 700 ml Balance 3080 ml NELL JARA MD Sep 01, 2019 13:40
[2019-09-01 14:00] VITALS: BP 112/89
== END 2019-09-01 15:17 | disposition home or self-care (01) | DRG 244 ==
LOC: M ED 11:03 → M ED INP 16:51 → ENRESERV 19:17 → M MSPAV 19:41
PROVIDERS: ADMIT Surgery; ATTEND Surgery
DX: K57.32 Diverticulitis of large intestine without perforation or abscess without bleeding (principal)

== ENCOUNTER → 2024-09-16 | Outpatient (CLI) | payer OTHER ==
[~2024-09-16] MED LIST changes: +CIPR500T3 PO; +FLAG500T PO; +MIDOTAB PO; +PEPC1TAB5 PO; -SIME180C PO; +SIME1CAP4 PO
== END ==
LOC: M OUTALCOH 12:33
PROVIDERS: ATTEND Psychiatry & Neurology Psychiatry
DX: F10.20 Alcohol dependence, uncomplicated (principal); F12.20 Cannabis dependence, uncomplicated; F17.200 Nicotine dependence, unspecified, uncomplicated

== ENCOUNTER 2024-10-06 16:00 | Outpatient (RCR) | payer MEDICAID | END 2024-10-11 | LOC: M OUTALCOH 16:00 | PROVIDERS: ATTEND Psychiatry & Neurology Psychiatry | DX: F10.20 Alcohol dependence, uncomplicated (principal); F12.20 Cannabis dependence, uncomplicated; F17.200 Nicotine dependence, unspecified, uncomplicated ==

== ENCOUNTER → 2024-11-10 | Outpatient (RCR) | payer MEDICAID | LOC: M OUTALCOH 10-13 16:00 | PROVIDERS: ATTEND Psychiatry & Neurology Psychiatry | DX: F10.20 Alcohol dependence, uncomplicated (principal); F17.200 Nicotine dependence, unspecified, uncomplicated; F12.20 Cannabis dependence, uncomplicated | CPT/HCPCS: 99211; G0397 ==

== ENCOUNTER 2024-12-07 10:00 | Outpatient (RCR) | payer MEDICAID | END 2024-12-11 | LOC: M OUTALCOH 10:00 | PROVIDERS: ATTEND Psychiatry & Neurology Psychiatry | DX: F10.20 Alcohol dependence, uncomplicated (principal); F17.200 Nicotine dependence, unspecified, uncomplicated; F12.20 Cannabis dependence, uncomplicated ==

== ENCOUNTER 2024-12-16 09:58 | Outpatient (RCR) | payer MEDICAID | END 2025-01-10 | LOC: M OUTALCOH 09:58 | PROVIDERS: ATTEND Psychiatry & Neurology Psychiatry | DX: F10.20 Alcohol dependence, uncomplicated (principal); F17.200 Nicotine dependence, unspecified, uncomplicated; F12.20 Cannabis dependence, uncomplicated ==

== ENCOUNTER 2025-01-27 14:34 | Outpatient (RCR) | payer MEDICAID | END 2025-02-10 | LOC: M OUTALCOH 14:34 | PROVIDERS: ATTEND Psychiatry & Neurology Psychiatry | DX: F10.20 Alcohol dependence, uncomplicated (principal); F12.20 Cannabis dependence, uncomplicated; F17.200 Nicotine dependence, unspecified, uncomplicated ==